=== PATIENT | female | born 1985 | race Caucasian/White ===

== ENCOUNTER 2021-10-22 13:20 | Emergency (ER) | payer MEDICAID, SELFPAY ==
[2021-10-22 13:50] VITALS: BP 114/73; PULSE 77; RESP 20; TEMP 36.8; O2SAT 95; BMI 55.5
--- NOTE | 2021-10-22 14:03 | XR_ITS ---
WS: [id number] Right knee, 3 views, 10/22/2021 Clinical Data: fall, pain Comparison: None. Findings: No fractures or dislocations are seen. There is a small spur of the lateral tibial plateau. There is a posterior inferior spur of the right patella The joint spaces are normal. The patella is intact. Th e soft tissues are unremarkable. XR/XR knee RT 3V* [id number] Impression: 1. Negative for right knee fracture. 2. Mild osteoarthritis involving the lateral joint compartment posterior patell a of the right knee Kellgren-Enio Classification: grade 1 (doubtful): doubtful joint space narr owing and possible osteophytic lipping
[2021-10-22 14:04] VITALS: BP 114/73; PULSE 77; RESP 16; O2SAT 97
--- NOTE | 2021-10-22 14:38 | ED_ITS ---
HPI - Extremity Problem General: Chief complaint: Extremity Injury, Lower Stated complaint: Right knee pain Time Seen by Provider: 10/22/21 13:33 History of Present Illness: Right knee strain. Happened about a week ago. Fell and twisted knee. Associated symptoms: Deny chest pain, fever(s) or rash Review of Systems Const: Denies: fever(s), chills or body aches Eyes: Denies: eye discomfort ENMT: Denies: throat pain Card: Denies: chest pain Resp: Denies: dyspnea GI: Denies: abdominal pain, nausea or vomiting Musc: Reports: joint pain (Right knee hurts after falling twisting knee) Skin/Breast: Denies: rash Neuro: Denies: headache(s) Psych: Denies: depression or suicidal ideation Physical Exam Const: COMMON NORMALS: no acute distress, patient oriented x3 and alert HENMT: COMMON NORMALS: normocephalic HEAD & SCALP: normocephalic Eye: COMMON NORMALS: EOMs intact bilaterally Neck/C-Spine: COMMON NORMALS: no JVD Resp: COMMON NORMALS: normal respiratory effort and No use of accessory muscles Cardio: COMMON NORMALS: no JVD GI: INSPECTION: Yes normal to inspection Extremity: COMMON NORMALS: normal to inspection and full ROM RIGHT LOWER EXTREMITY: Yes knee joint (Tenderness to the lateral aspect of the knee. No swelling does have full r) Neuro: COMMON NORMALS: patient oriented x3 SENSORIUM/ORIENTATION: Yes alert Psych: COMMON NORMALS: mental status grossly normal Skin: COMMON NORMALS: no rashes or lesions noted GENERAL SKIN EXAM: no rashes or lesions noted Course Vital Signs: Vital signs: Vital Signs Temperature 98.3 F 10/22/21 13:50 Pulse Rate 77 10/22/21 14:04 Respiratory Rate 16 10/22/21 14:04 Blood Pressure 114/73 10/22/21 14:04 Pulse Oximetry 97 10/22/21 14:04 MDM - Extremity (Nontraumatic) Medical Decision Making Right knee strain. Lab Data Radiology Impressions Knee X-Ray 10/22/21 14:03 Impression: 1. Negative for right knee fracture. 2. Mild osteoarthritis involving the lateral joint compartment posterior patella of the right knee Kellgren-Enio Classification: grade 1 (doubtful): doubtful joint space narrowing and possible osteophytic lipping Discharge Plan Discharge Patient Disposition: Home Clinical Impression: Knee strain Condition: Stable Prescriptions: New Voltaren Arthritis Pain 1 % gel 4 g topical QID Qty: 100 0RF Rx Instructions: apply to single knee, ankle, foot; for foot includes sole/toes/top of foot Discharge Orders: Discharge ED (Routine); Ordered 10/22/21 Ordered By: Mikael Beltran Referrals: Tawanda Pham [Primary Care Provider] - Discharge Diet: Usual diet Discharge Activity: Increase activity as tolerated and Use walker/crutches as instructed Patient Instructions: Knee Pain (ED) Activity Restrictions/Additional Instructions: Use medication as directed. Use crutches that you have at home to help you walk if necessary. Follow-up your primary care provider in 2 weeks if knee pain has not improved. Coding Level of Care Code ED [employer] Loader for Jacki Dorman
== END 2021-10-22 14:44 | disposition home or self-care (01) ==
PROVIDERS: Emergency Provider Nurse Practitioner Family; PCP Family Medicine
DX: S86.911A Strain of unspecified muscle(s) and tendon(s) at lower leg level, right leg, initial encounter (principal); X50.1XXA Overexertion from prolonged static or awkward postures, initial encounter
CPT/HCPCS: 73562; 99282